=== PATIENT | female | born 1955 | race Caucasian/White ===

== ENCOUNTER 2016-10-29 16:08 | Emergency (ER) | payer SELFPAY ==
[~2016-10-29] VITALS: Ht 170.2 cm; Wt 63.1 kg
[~2016-10-29 16:08] MED LIST: NOHOMEMEDS
[2016-10-29] MEDS ORDERED: VENTOLIN HFA18 GM IH (18:38)
[2016-10-29 19:05] VITALS: BP 107/59
== END 2016-10-29 19:07 | disposition home or self-care (01) ==
LOC: EME 16:08
DX: J20.9 Acute bronchitis, unspecified (principal); F17.200 Nicotine dependence, unspecified, uncomplicated
CPT/HCPCS: 71020; 94640; 99281; 99284

== ENCOUNTER 2016-11-16 23:04 | Emergency (ER) | payer BC ==
[~2016-11-16] VITALS: Ht 170.2 cm; Wt 61.4 kg
[~2016-11-16 23:04] MED LIST changes: +VENTOLIN HFA18 GM IH
[2016-11-16 23:56] LABS: HEMATOCRIT 34.4 % (36.0-46.0); MCH 27.4 PG (29.0-34.0); MCHC 31.1 G/DL (30.0-36.0); MEAN PLAT.VOLUME 8.7 uM^3 (9.5-12.4); PLATELET COUNT 269 K/uL (156-360); RBC DIS.WIDTH-CV 15.7 % (11.8-14.6); RBC DIS.WIDTH-SD 49.1 % (39-53); RED BLOOD COUNT 3.91 M/uL (3.80-5.20); WHITE BLOOD COUNT 7.4 K/uL (4.1-10.2)
[2016-11-17 00:06] LABS: CHLORIDE 104 mEq/L (99-109); POTASSIUM 4.4 mEq/L (3.7-5.4); SODIUM 137 mEq/L (136-147)
[2016-11-17 00:07] LABS: GLUCOSE 92 mg/dL (70-99)
[2016-11-17 00:09] LABS: ANION GAP 7 MEQ/L (2-14)
[2016-11-17 00:11] LABS: GFR ESTIMATE (CALCULATED) > 59 mL/min/
[2016-11-17 00:12] LABS: UREA NITROGEN (BUN) 15 mg/dL (9-23)
[2016-11-17] MEDS ORDERED: ZANAFLEX2 MG PO (02:55)
[2016-11-17] MEDS ORDERED: MEDROL DOSEPAK4 MG PO (02:55)
[2016-11-17 03:46] VITALS: BP 120/76
== END 2016-11-17 04:06 | disposition home or self-care (01) ==
LOC: EME 23:04
DX: S29.012A Strain of muscle and tendon of back wall of thorax, initial encounter (principal); X58.XXXA Exposure to other specified factors, initial encounter; M54.6 Pain in thoracic spine; Z87.09 Personal history of other diseases of the respiratory system; F17.200 Nicotine dependence, unspecified, uncomplicated
CPT/HCPCS: 71020; 80048; 85027; 99281; 99284; J1170; J1885

== ENCOUNTER 2017-04-24 02:06 | Inpatient (IN) | payer OTHER ==
[~2017-04-24] VITALS: Ht 170.2 cm; Wt 61.1 kg
[~2017-04-24 02:06] MED LIST changes: +MEDROL DOSEPAK4 MG PO; +ZANAFLEX2 MG PO
[2017-04-24] MEDS ORDERED: PAXIL40 MG PO (02:40)
[2017-04-24] MEDS ORDERED: MOTRIN800 MG PO (02:40)
[2017-04-24 03:56] LABS: HEMATOCRIT 29.6 % (36.0-46.0); MCH 26.6 PG (29.0-34.0); MCHC 32.1 G/DL (30.0-36.0); MCV 82.9 FL (83-99); MEAN PLAT.VOLUME 8.5 uM^3 (9.5-12.4); PLATELET COUNT 245 K/uL (156-360); RBC DIS.WIDTH-CV 13.7 % (11.8-14.6); RBC DIS.WIDTH-SD 41.8 % (39-53); RED BLOOD COUNT 3.57 M/uL (3.80-5.20); WHITE BLOOD COUNT 6.3 K/uL (4.1-10.2)
[2017-04-24 04:06] LABS: CHLORIDE 102 mEq/L (99-109); SODIUM 134 mEq/L (136-147)
[2017-04-24 04:07] LABS: GLUCOSE 95 mg/dL (70-99)
[2017-04-24 04:09] LABS: ANION GAP 8 MEQ/L (2-14)
[2017-04-24 04:11] LABS: GFR ESTIMATE (CALCULATED) 22 mL/min/
[2017-04-24 04:12] LABS: UREA NITROGEN (BUN) 25 mg/dL (9-23)
[2017-04-24 04:17] LABS: TROP-I INTERPRETATION NEGATIVE; TROPONIN-I < 0.01 ng/mL (0.0-0.30)
[2017-04-24 07:38] LABS: TROP-I INTERPRETATION NEGATIVE; TROPONIN-I 0.01 ng/mL (0.0-0.30)
[2017-04-24] MEDS ORDERED: CYCLOBENZAPRINE10 MG PO (08:33)
[2017-04-24] MEDS ORDERED: MULTI-VITAMIN1 EAC3 PO (08:34)
[2017-04-24] MEDS ORDERED: ARTIFICIAL TEAR15 M1 BOTH EYES (08:34)
[2017-04-24 11:08] VITALS: BP 136/67
[2017-04-24 14:06] LABS: IRON 36 MCG/DL (35-150)
[2017-04-24 14:10] LABS: TROP-I INTERPRETATION NEGATIVE; TROPONIN-I < 0.01 ng/mL (0.0-0.30)
[2017-04-24 16:05] VITALS: BP 106/74
[2017-04-24 19:42] VITALS: BP 118/65
[2017-04-24 19:58] LABS: TROP-I INTERPRETATION NEGATIVE; TROPONIN-I 0.02 ng/mL (0.0-0.30)
[2017-04-24 23:32] VITALS: BP 124/65
[2017-04-25 00:36] LABS: ADD MIUA? YES; BILIRUBIN NEGATIVE; BLOOD SMALL; COLOR YELLOW ((YELLOW)); GLUCOSE (STRIP) NEGATIVE; KETONES NEGATIVE; LEUKOCYTES SMALL; NITRITE NEGATIVE; PROTEIN (STRIP) NEGATIVE; SPECIFIC GRAVITY 1.008 (1.000-1.030); UROBILINOGEN 0.2 MG/DL (0.2-1.0)
[2017-04-25 00:55] LABS: BACTERIA 2+ /HPF; EPITHELIAL CELLS RARE /HPF; MUCUS TRACE /LPF; RED BLOOD CELLS 0-5 /HPF (0-5); UCUL ADDED? YES
[2017-04-25 03:38] VITALS: BP 133/69
[2017-04-25 06:33] LABS: ANION GAP 3 MEQ/L (2-14); CHLORIDE 111 MEQ/L (99-109); GFR ESTIMATE (CALCULATED) 41 mL/min/; GLUCOSE 86 mg/dL (70-99); POTASSIUM 4.3 MEQ/L (3.7-5.4); SAMPLE HEMOLYSIS CHECK 0; SAMPLE ICTERIC CHECK 0; SAMPLE LIPEMIA CHECK 0; SODIUM 138 MEQ/L (136-147); UREA NITROGEN (BUN) 19 mg/dL (9-23)
[2017-04-25 07:30] VITALS: BP 149/71
[2017-04-25 11:25] VITALS: BP 130/63
[2017-04-25 15:32] VITALS: BP 140/66
[2017-04-25 19:27] VITALS: BP 144/65
[2017-04-26] VITALS (7 sets, daily range): BP systolic 119–150; BP diastolic 58–72
[2017-04-26 07:08] LABS: ANION GAP 7 MEQ/L (2-14); CHLORIDE 109 MEQ/L (99-109); GFR ESTIMATE (CALCULATED) > 59 mL/min/; GLUCOSE 91 mg/dL (70-99); POTASSIUM 3.8 MEQ/L (3.7-5.4); SAMPLE HEMOLYSIS CHECK 0; SAMPLE ICTERIC CHECK 0; SAMPLE LIPEMIA CHECK 0; SODIUM 139 MEQ/L (136-147); UREA NITROGEN (BUN) 12 mg/dL (9-23)
[2017-04-27 03:37] VITALS: BP 135/61
[2017-04-27 08:26] VITALS: BP 146/71
[2017-04-27 11:33] VITALS: BP 134/74
[2017-04-27 16:17] VITALS: BP 138/80
[2017-04-27 19:52] VITALS: BP 117/56
[2017-04-28 00:01] VITALS: BP 120/58
[2017-04-28 03:37] VITALS: BP 124/58
[2017-04-28 07:06] LABS: ALKALINE PHOSPHATASE 192 IU/L (3-129); ANION GAP 6 MEQ/L (2-14); CHLORIDE 104 MEQ/L (99-109); GFR ESTIMATE (CALCULATED) > 59 mL/min/; GLOBULINS 5.3 G/DL (2.3-3.5); GLUCOSE 87 mg/dL (70-99); POTASSIUM 3.8 MEQ/L (3.7-5.4); SAMPLE HEMOLYSIS CHECK 0; SAMPLE ICTERIC CHECK 0; SAMPLE LIPEMIA CHECK 0; SODIUM 139 MEQ/L (136-147); TOTAL BILIRUBIN 0.2 MG/DL (0.0-1.0); UREA NITROGEN (BUN) 9 mg/dL (9-23)
[2017-04-28 07:23] LABS: IMMUNOGLOBULIN A 28 MG/DL (40-350); IMMUNOGLOBULIN G 3671 MG/DL (650-1600); IMMUNOGLOBULIN M 34 MG/DL (50-300)
[2017-04-28 11:53] VITALS: BP 132/67
[2017-04-28 15:17] LABS: ALBUMIN 2.53 G/DL (3.6-4.9); ALBUMIN PERCENT 32.4 % (49.3-67.1); ALPHA-1 GLOBULIN 0.48 G/DL (0.15-0.40); ALPHA-1 PERCENT 6.2 % (2.1-5.5); ALPHA-2 PERCENT 14.1 % (6.2-11.6); BETA PERCENT 6.4 % (8.9-15.8); GAMMA PERCENT 40.9 % (8.6-18.6)
[2017-04-28 16:46] VITALS: BP 123/61
[2017-04-28 19:52] VITALS: BP 107/58
[2017-04-28 23:54] VITALS: BP 116/67
[2017-04-29 04:05] VITALS: BP 116/63
[2017-04-29 07:39] VITALS: BP 139/66
[2017-04-29 11:17] VITALS: BP 126/65
[2017-04-29 15:31] VITALS: BP 111/56
[2017-04-30] VITALS: BP 118/74
[2017-04-30 07:28] VITALS: BP 133/60
[2017-04-30 15:29] VITALS: BP 127/58
[2017-04-30 23:53] VITALS: BP 122/59
[2017-05-01 05:52] LABS: INTER. NORMALIZED RATIO 1.1; PROTHROMBIN TIME 12.4 SEC (10.2-12.9)
[2017-05-01 05:55] LABS: PTT 25.8 SEC (25-37)
[2017-05-01 07:24] VITALS: BP 153/71
[2017-05-01 12:53] LABS: MCH 27.2 PG (29.0-34.0); MCHC 31.5 G/DL (30.0-36.0); MCV 86.4 FL (83-99); MEAN PLAT.VOLUME 9.4 uM^3 (9.5-12.4); NRBC (%) 0.2 /100 WBC (0-0); PLATELET COUNT 303 K/uL (156-360); RBC DIS.WIDTH-CV 14.5 % (11.8-14.6); RBC DIS.WIDTH-SD 45.2 % (39-53); RED BLOOD COUNT 3.01 M/uL (3.80-5.20); WHITE BLOOD COUNT 8.6 K/uL (4.1-10.2)
[2017-05-01 13:14] LABS: ABS NEUTROPHIL COUNT 7.2; EOSINOPHIL ABS CT 0; INSTRUMENT ABS NEUTROPHIL CT 6.8 K/uL; PLAT.SUFFICIENCY ADEQUATE
[2017-05-01 15:20] VITALS: BP 128/70
[2017-05-02 00:05] VITALS: BP 90/50
[2017-05-02 06:06] LABS: HEMATOCRIT 28.7 % (36.0-46.0); MCH 27.4 PG (29.0-34.0); MCHC 31.4 G/DL (30.0-36.0); MCV 87.2 FL (83-99); MEAN PLAT.VOLUME 8.8 uM^3 (9.5-12.4); NRBC (%) 0.7 /100 WBC (0-0); PLATELET COUNT 337 K/uL (156-360); RBC DIS.WIDTH-CV 14.5 % (11.8-14.6); RBC DIS.WIDTH-SD 46.1 % (39-53); RED BLOOD COUNT 3.29 M/uL (3.80-5.20); WHITE BLOOD COUNT 6.9 K/uL (4.1-10.2)
[2017-05-02 06:44] LABS: ANION GAP 6 MEQ/L (2-14); CHLORIDE 102 MEQ/L (99-109); GFR ESTIMATE (CALCULATED) > 59 mL/min/; GLUCOSE 96 mg/dL (70-99); POTASSIUM 4.4 MEQ/L (3.7-5.4); SAMPLE HEMOLYSIS CHECK 0; SAMPLE ICTERIC CHECK 0; SAMPLE LIPEMIA CHECK 0; SODIUM 140 MEQ/L (136-147); UREA NITROGEN (BUN) 15 mg/dL (9-23)
[2017-05-02 07:22] VITALS: BP 110/57
[2017-05-02] MEDS ORDERED: NICOTINE PATCH1 EAC1 TD (15:07)
[2017-05-02] MEDS ORDERED: TIZANIDINE HCL2 MG PO (15:07)
[2017-05-02] MEDS ORDERED: SPIRIVA RESPIMAT4 GM IH (15:07)
[2017-05-02] MEDS ORDERED: VENTOLIN HFA18 GM IH (15:07)
[2017-05-02] MEDS ORDERED: ADVAIR HFA120 INHALA IH (15:09)
[2017-05-02] MEDS ORDERED: PROMETHAZINE HC25 M1 PO (15:09)
[2017-05-02] MEDS ORDERED: DOCUSATE SODIU100 MG PO (15:09)
[2017-05-02] MEDS ORDERED: ALPRAZOLAM0.25 M2 PO (15:13)
[2017-05-02] MEDS ORDERED: ENDOCET 5-3251 EACH PO (15:13)
[2017-05-02] MEDS ORDERED: PREDNISONE10 MG PO (15:13)
[2017-05-02] MEDS ORDERED: OXYCONTIN15 MG PO (15:13)
[2017-05-02 15:34] VITALS: BP 121/57
[2017-05-02] MEDS ORDERED: INCRUSE ELLI62.5 MCG IH (16:09)
[2017-05-02] MEDS ORDERED: DULERA 100 MCG/13 GM IH (16:09)
[2017-05-10 08:18] LABS: NUMBER OF MARKERS 24; SPECIMEN VIABILITY 99
== END 2017-05-02 17:13 | disposition home or self-care (01) | DRG 190 ==
LOC: EME 02:06 → 5SOUTH 07:47 → EDOF 07:47 → ENRESERV 08:02 → 5SOUTH 10:50
PROVIDERS: Anesthesiology; Family Medicine; Internal Medicine; Physician Assistant Medical; Radiology Diagnostic Radiology
PROC: 07DR3ZX Extraction of Iliac Bone Marrow, Percutaneous Approach, Diagnostic (ICD-10-PCS; principal; 2017-05-01)
DX: J44.0 Chronic obstructive pulmonary disease with (acute) lower respiratory infection (principal); J18.9 Pneumonia, unspecified organism; J44.1 Chronic obstructive pulmonary disease with (acute) exacerbation; N17.9 Acute kidney failure, unspecified; C79.89 Secondary malignant neoplasm of other specified sites; I26.99 Other pulmonary embolism without acute cor pulmonale; C79.51 Secondary malignant neoplasm of bone; C90.00 Multiple myeloma not having achieved remission; M48.54XA Collapsed vertebra, not elsewhere classified, thoracic region, initial encounter for fracture; F41.9 Anxiety disorder, unspecified; J20.9 Acute bronchitis, unspecified; M54.14 Radiculopathy, thoracic region; D50.9 Iron deficiency anemia, unspecified; F17.210 Nicotine dependence, cigarettes, uncomplicated; K59.00 Constipation, unspecified; K21.9 Gastro-esophageal reflux disease without esophagitis; M94.0 Chondrocostal junction syndrome [Tietze]; R79.1 Abnormal coagulation profile; X50.0XXA Overexertion from strenuous movement or load, initial encounter; Y93.F2 Activity, caregiving, lifting; Y99.0 Civilian activity done for income or pay; Z88.5 Allergy status to narcotic agent; Z83.3 Family history of diabetes mellitus; Z87.730 Personal history of (corrected) cleft lip and palate
CPT/HCPCS: 71010; 71020; 71250; 71260; 72157; 74177; 77012; 78582; 80048; 80053; 81003; 82232; 82607; 82746; 82784 90; 83540; 83615; 83883 90; 84165; 84466; 84484; 85007; 85027; 85379; 85610; 85730; 86334; 87040; 87086; 93005; 94640; 94640 76; 94799; 97530 GO; 99202; 99281; 99284; A9540; A9567; J0696; J1644; J1650; J1885; J2060; J2270; J3010; J7030; J7050; J7512

== ENCOUNTER 2017-06-10 16:39 | Emergency (ER) | payer OTHER ==
[~2017-06-10] VITALS: Ht 170.2 cm; Wt 56.8 kg
[~2017-06-10 16:39] MED LIST changes: +ADVAIR HFA120 INHALA IH; +ALPRAZOLAM0.25 M2 PO; +ARTIFICIAL TEAR15 M1 BOTH EYES; +CYCLOBENZAPRINE10 MG PO; +DOCUSATE SODIU100 MG PO; +DULERA 100 MCG/13 GM IH; +ENDOCET 5-3251 EACH PO; +INCRUSE ELLI62.5 MCG IH; +MOTRIN800 MG PO; +MULTI-VITAMIN1 EAC3 PO; +NICOTINE PATCH1 EAC1 TD; +OXYCONTIN15 MG PO; +PAXIL40 MG PO; +PREDNISONE10 MG PO; +PROMETHAZINE HC25 M1 PO; +SPIRIVA RESPIMAT4 GM IH; +TIZANIDINE HCL2 MG PO
[2017-06-10] MEDS ORDERED: LIDODERM 5% P1 PATCH TD (18:48)
[2017-06-10 19:55] VITALS: BP 124/70
== END 2017-06-10 19:56 | disposition home or self-care (01) ==
LOC: EME 16:39
DX: M48.54XA Collapsed vertebra, not elsewhere classified, thoracic region, initial encounter for fracture (principal); S29.011A Strain of muscle and tendon of front wall of thorax, initial encounter; X50.9XXA Other and unspecified overexertion or strenuous movements or postures, initial encounter; Y93.E1 Activity, personal bathing and showering; C90.00 Multiple myeloma not having achieved remission; F41.9 Anxiety disorder, unspecified; Z88.5 Allergy status to narcotic agent; F17.200 Nicotine dependence, unspecified, uncomplicated
CPT/HCPCS: 71100; 71120; 72070; 99281; 99284

== ENCOUNTER 2017-07-19 12:35 | Inpatient (IN) | payer OTHER ==
[~2017-07-19] VITALS: Ht 170.2 cm; Wt 53.7 kg
[~2017-07-19 12:35] MED LIST changes: +LIDODERM 5% P1 PATCH TD
[2017-07-19 13:22] LABS: HEMATOCRIT 38.5 % (36.0-46.0); HEMOGLOBIN 12.4 G/DL (11.9-15.5); MCH 27.4 PG (29.0-34.0); MCHC 32.2 G/DL (30.0-36.0); MCV 85.2 FL (83-99); PLATELET COUNT 422 K/uL (156-360); RBC DIS.WIDTH-CV 15.7 % (11.8-14.6); RBC DIS.WIDTH-SD 48.7 % (39-53); RED BLOOD COUNT 4.52 M/uL (3.80-5.20); WHITE BLOOD COUNT 9.9 K/uL (4.1-10.2)
[2017-07-19 13:34] LABS: CHLORIDE 104 mEq/L (99-109); POTASSIUM 3.9 mEq/L (3.7-5.4); SODIUM 136 mEq/L (136-147)
[2017-07-19 13:35] LABS: GLUCOSE 87 mg/dL (70-99)
[2017-07-19 13:39] LABS: CREATININE 0.7 mg/dL (0.6-1.3); GFR ESTIMATE (CALCULATED) > 59 mL/min/
[2017-07-19 13:40] LABS: UREA NITROGEN (BUN) 19 mg/dL (9-23)
[2017-07-19 13:43] LABS: TROP-I INTERPRETATION NEGATIVE; TROPONIN-I < 0.01 ng/mL (0.0-0.30)
[2017-07-19 20:10] VITALS: BP 121/65
[2017-07-19 23:30] VITALS: BP 112/62
[2017-07-20 04:22] VITALS: BP 107/56
[2017-07-20 06:56] LABS: HEMATOCRIT 35.1 % (36.0-46.0); HEMOGLOBIN 11.2 G/DL (11.9-15.5); MCH 27.8 PG (29.0-34.0); MCHC 31.9 G/DL (30.0-36.0); MCV 87.1 FL (83-99); PLATELET COUNT 348 K/uL (156-360); RBC DIS.WIDTH-CV 16.2 % (11.8-14.6); RBC DIS.WIDTH-SD 51.3 % (39-53); RED BLOOD COUNT 4.03 M/uL (3.80-5.20); WHITE BLOOD COUNT 8.7 K/uL (4.1-10.2)
[2017-07-20 07:35] LABS: CHLORIDE 105 MEQ/L (99-109); CREATININE 0.7 MG/DL (0.6-1.3); GFR ESTIMATE (CALCULATED) > 59 mL/min/; SODIUM 136 MEQ/L (136-147); UREA NITROGEN (BUN) 16 mg/dL (9-23)
[2017-07-20 07:39] LABS: GLUCOSE 141 mg/dL (70-99); POTASSIUM 4.7 MEQ/L (3.7-5.4)
[2017-07-20 07:51] VITALS: BP 118/60
[2017-07-20 11:12] VITALS: BP 104/55
[2017-07-20 15:50] VITALS: BP 122/56
[2017-07-21 00:03] VITALS: BP 114/59
[2017-07-21 07:16] LABS: APPEARANCE CLEAR ((CLEAR)); BILIRUBIN NEGATIVE; BLOOD SMALL; COLOR YELLOW ((YELLOW)); GLUCOSE (STRIP) 50; KETONES NEGATIVE; LEUKOCYTES TRACE; NITRITE NEGATIVE; PROTEIN (STRIP) NEGATIVE; SPECIFIC GRAVITY 1.011 (1.000-1.030); UROBILINOGEN 0.2 MG/DL (0.2-1.0)
[2017-07-21 07:30] LABS: BACTERIA NONE SEEN /HPF; EPITHELIAL CELLS NONE SEEN /HPF; MUCUS NONE SEEN /LPF; RED BLOOD CELLS 0-5 /HPF (0-5); UCUL ADDED? YES; URIC ACID CRYSTALS 1+ /HPF
[2017-07-21 07:59] VITALS: BP 104/54
[2017-07-21 15:29] VITALS: BP 98/52
[2017-07-22 00:07] VITALS: BP 111/56
[2017-07-22 08:04] VITALS: BP 115/92
[2017-07-22 11:15] VITALS: BP 104/65
[2017-07-22 13:01] LABS: BASOPHIL (%) 0.4 % (0-1); EOSINOPHIL (%) 1.6 % (0-5); EOSINOPHIL COUNT 0.1 K/uL (0-0.3); HEMATOCRIT 34.2 % (36.0-46.0); HEMOGLOBIN 10.7 G/DL (11.9-15.5); IMMATURE GRANULOCYTE (%) 1.8 % (0.0-0.7); LYMPHOCYTE (%) 10.2 % (15-42); LYMPHOCYTE COUNT 0.5 K/uL (1.0-2.8); MCH 26.9 PG (29.0-34.0); MCHC 31.3 G/DL (30.0-36.0); MCV 85.9 FL (83-99); MONOCYTE (%) 7.2 % (3-12); MONOCYTE COUNT 0.4 K/uL (0-0.8); NEUTROPHIL (%) 78.8 % (45-76); NRBC (%) 0.4 /100 WBC (0-0); PLATELET COUNT 268 K/uL (156-360); RBC DIS.WIDTH-CV 15.9 % (11.8-14.6); RBC DIS.WIDTH-SD 49.7 % (39-53); RED BLOOD COUNT 3.98 M/uL (3.80-5.20); WHITE BLOOD COUNT 5.1 K/uL (4.1-10.2)
[2017-07-22 13:25] LABS: CHLORIDE 99 MEQ/L (99-109); CREATININE 0.7 MG/DL (0.6-1.3); GFR ESTIMATE (CALCULATED) > 59 mL/min/; SODIUM 132 MEQ/L (136-147); UREA NITROGEN (BUN) 12 mg/dL (9-23)
[2017-07-22 13:32] LABS: GLUCOSE 94 mg/dL (70-99)
[2017-07-22 14:07] LABS: ALBUMIN 2.7 G/DL (3.2-4.8)
[2017-07-22 16:19] VITALS: BP 105/50
[2017-07-22 23:22] VITALS: BP 91/52
[2017-07-23 07:33] VITALS: BP 115/53
[2017-07-23 08:00] LABS: HEMATOCRIT 30.8 % (36.0-46.0); HEMOGLOBIN 9.4 G/DL (11.9-15.5); MCH 26.9 PG (29.0-34.0); MCHC 30.5 G/DL (30.0-36.0); PLATELET COUNT 266 K/uL (156-360); RBC DIS.WIDTH-CV 16.3 % (11.8-14.6); RBC DIS.WIDTH-SD 52.4 % (39-53); WHITE BLOOD COUNT 5.4 K/uL (4.1-10.2)
[2017-07-23 08:24] LABS: ALBUMIN 2.5 G/DL (3.2-4.8); ALKALINE PHOSPHATASE 365 IU/L (3-129); ALT (GPT) 130 IU/L (3-49); AST (GOT) 139 IU/L (2-34); CHLORIDE 108 MEQ/L (99-109); CREATININE 0.6 MG/DL (0.6-1.3); GFR ESTIMATE (CALCULATED) > 59 mL/min/; GLUCOSE 174 mg/dL (70-99); MAGNESIUM 2.1 mg/dl (1.3-2.7); POTASSIUM 3.9 MEQ/L (3.7-5.4); SODIUM 137 MEQ/L (136-147); TOTAL BILIRUBIN 0.3 MG/DL (0.0-1.0); TOTAL PROTEIN 5.1 G/DL (6.4-8.3); UREA NITROGEN (BUN) 9 mg/dL (9-23)
[2017-07-23 12:31] LABS: HEPATITIS B SURFACE ANTIGEN Nonreactive; HEPATITIS C ANTIBODY Nonreactive
[2017-07-23 12:32] LABS: ANTI-HEPATITIS A VIRUS (IGM) Nonreactive
[2017-07-23 12:33] LABS: ANTI-HEPATITIS B CORE (IGM) Nonreactive
[2017-07-23 15:54] VITALS: BP 95/65
[2017-07-23 23:59] VITALS: BP 110/60
[2017-07-24 04:13] LABS: BASOPHIL (%) 0.1 % (0-1); EOSINOPHIL (%) 0.9 % (0-5); EOSINOPHIL COUNT 0.1 K/uL (0-0.3); HEMATOCRIT 29.2 % (36.0-46.0); HEMOGLOBIN 9.2 G/DL (11.9-15.5); IMMATURE GRANULOCYTE (%) 1.3 % (0.0-0.7); LYMPHOCYTE (%) 6.8 % (15-42); LYMPHOCYTE COUNT 0.6 K/uL (1.0-2.8); MCH 27.4 PG (29.0-34.0); MCHC 31.5 G/DL (30.0-36.0); MCV 86.9 FL (83-99); MONOCYTE (%) 9.7 % (3-12); MONOCYTE COUNT 0.8 K/uL (0-0.8); NEUTROPHIL (%) 81.2 % (45-76); NEUTROPHIL COUNT 6.7 K/uL (1.8-6.4); PLATELET COUNT 269 K/uL (156-360); RBC DIS.WIDTH-CV 16.4 % (11.8-14.6); RBC DIS.WIDTH-SD 51.9 % (39-53); RED BLOOD COUNT 3.36 M/uL (3.80-5.20); WHITE BLOOD COUNT 8.2 K/uL (4.1-10.2)
[2017-07-24 04:24] LABS: ALBUMIN 2.4 g/dL (3.2-4.8)
[2017-07-24 04:25] LABS: CHLORIDE 110 mEq/L (99-109); POTASSIUM 3.8 mEq/L (3.7-5.4); SODIUM 139 mEq/L (136-147)
[2017-07-24 04:27] LABS: GLUCOSE 125 mg/dL (70-99); TOTAL PROTEIN 4.6 g/dL (6.4-8.3)
[2017-07-24 04:29] LABS: TOTAL BILIRUBIN 0.3 mg/dL (0.0-1.0)
[2017-07-24 04:30] LABS: ALKALINE PHOSPHATASE 341 IU/L (3-129)
[2017-07-24 04:31] LABS: CREATININE 0.6 mg/dL (0.6-1.3); GFR ESTIMATE (CALCULATED) > 59 mL/min/
[2017-07-24 04:32] LABS: AST (GOT) 46 IU/L (2-34); DIRECT BILIRUBIN 0.1 mg/dL (0.0-0.3); UREA NITROGEN (BUN) 10 mg/dL (9-23)
[2017-07-24 04:34] LABS: ALT (GPT) 104 IU/L (3-49)
[2017-07-24 07:58] VITALS: BP 112/54
[2017-07-24 09:33] LABS: MAGNESIUM 2.5 mg/dl (1.3-2.7)
[2017-07-24 15:58] VITALS: BP 112/56
[2017-07-24 23:16] VITALS: BP 107/56
[2017-07-25 07:47] LABS: HEMATOCRIT 33.2 % (36.0-46.0); HEMOGLOBIN 10.5 G/DL (11.9-15.5); MCH 28.2 PG (29.0-34.0); MCHC 31.6 G/DL (30.0-36.0); MCV 89.2 FL (83-99); NRBC (%) 0.3 /100 WBC (0-0); PLATELET COUNT 274 K/uL (156-360); RBC DIS.WIDTH-CV 17.1 % (11.8-14.6); RBC DIS.WIDTH-SD 55.7 % (39-53); RED BLOOD COUNT 3.72 M/uL (3.80-5.20); WHITE BLOOD COUNT 6.4 K/uL (4.1-10.2)
[2017-07-25 08:09] VITALS: BP 130/73
[2017-07-25 11:12] LABS: INTACT PARATHYROID HORMONE 191 pg/mL (10-69)
[2017-07-25 11:14] LABS: ALBUMIN 2.6 G/DL (3.2-4.8); ALKALINE PHOSPHATASE 328 IU/L (3-129); ALT (GPT) 64 IU/L (3-49); AST (GOT) 16 IU/L (2-34); CHLORIDE 108 MEQ/L (99-109); CREATININE 0.6 MG/DL (0.6-1.3); GFR ESTIMATE (CALCULATED) > 59 mL/min/; GLUCOSE 89 mg/dL (70-99); PHOSPHORUS 1.7 mg/dL (2.5-4.9); POTASSIUM 4.7 MEQ/L (3.7-5.4); SODIUM 139 MEQ/L (136-147); TOTAL BILIRUBIN 0.2 MG/DL (0.0-1.0); TOTAL PROTEIN 5.1 G/DL (6.4-8.3); UREA NITROGEN (BUN) 11 mg/dL (9-23)
[2017-07-25 15:18] VITALS: BP 131/60
[2017-07-25 19:38] VITALS: BP 116/58
[2017-07-26 00:34] VITALS: BP 111/57
[2017-07-26 04:09] VITALS: BP 109/61
[2017-07-26 05:35] LABS: BASOPHIL (%) 0.2 % (0-1); EOSINOPHIL (%) 0.2 % (0-5); HEMATOCRIT 34.2 % (36.0-46.0); HEMOGLOBIN 10.7 G/DL (11.9-15.5); IMMATURE GRANULOCYTE (%) 2.3 % (0.0-0.7); LYMPHOCYTE (%) 7.9 % (15-42); LYMPHOCYTE COUNT 0.5 K/uL (1.0-2.8); MCH 27.3 PG (29.0-34.0); MCHC 31.3 G/DL (30.0-36.0); MCV 87.2 FL (83-99); MONOCYTE (%) 2.5 % (3-12); MONOCYTE COUNT 0.2 K/uL (0-0.8); NEUTROPHIL (%) 86.9 % (45-76); NEUTROPHIL COUNT 5.3 K/uL (1.8-6.4); PLATELET COUNT 265 K/uL (156-360); RBC DIS.WIDTH-CV 17.1 % (11.8-14.6); RBC DIS.WIDTH-SD 54.2 % (39-53); RED BLOOD COUNT 3.92 M/uL (3.80-5.20); WHITE BLOOD COUNT 6.1 K/uL (4.1-10.2)
[2017-07-26 07:58] VITALS: BP 128/78
[2017-07-26 09:19] LABS: ALKALINE PHOSPHATASE 320 IU/L (3-129); ALT (GPT) 62 IU/L (3-49); AST (GOT) 18 IU/L (2-34); CHLORIDE 105 MEQ/L (99-109); CREATININE 0.5 MG/DL (0.6-1.3); GFR ESTIMATE (CALCULATED) > 59 mL/min/; GLUCOSE 120 mg/dL (70-99); SODIUM 137 MEQ/L (136-147); TOTAL BILIRUBIN 0.3 MG/DL (0.0-1.0); TOTAL PROTEIN 5.1 G/DL (6.4-8.3); UREA NITROGEN (BUN) 12 mg/dL (9-23)
[2017-07-26 16:06] VITALS: BP 115/56
[2017-07-26 23:16] VITALS: BP 119/58
[2017-07-27 05:50] LABS: BASOPHIL (%) 0.2 % (0-1); EOSINOPHIL (%) 0.2 % (0-5); HEMATOCRIT 34.7 % (36.0-46.0); HEMOGLOBIN 10.6 G/DL (11.9-15.5); IMMATURE GRANULOCYTE (%) 3.4 % (0.0-0.7); LYMPHOCYTE (%) 12.8 % (15-42); LYMPHOCYTE COUNT 0.8 K/uL (1.0-2.8); MCH 26.6 PG (29.0-34.0); MCHC 30.5 G/DL (30.0-36.0); MONOCYTE (%) 10.2 % (3-12); MONOCYTE COUNT 0.6 K/uL (0-0.8); NEUTROPHIL (%) 73.2 % (45-76); NEUTROPHIL COUNT 4.3 K/uL (1.8-6.4); NRBC (%) 0.9 /100 WBC (0-0); PLATELET COUNT 261 K/uL (156-360); RBC DIS.WIDTH-CV 17.2 % (11.8-14.6); RBC DIS.WIDTH-SD 54.5 % (39-53); RED BLOOD COUNT 3.99 M/uL (3.80-5.20); WHITE BLOOD COUNT 5.9 K/uL (4.1-10.2)
[2017-07-27 06:29] LABS: ALBUMIN 2.8 G/DL (3.2-4.8); ALKALINE PHOSPHATASE 351 IU/L (3-129); ALT (GPT) 71 IU/L (3-49); AST (GOT) 34 IU/L (2-34); CHLORIDE 107 MEQ/L (99-109); CREATININE 0.6 MG/DL (0.6-1.3); GFR ESTIMATE (CALCULATED) > 59 mL/min/; GLUCOSE 96 mg/dL (70-99); MAGNESIUM 2.2 mg/dl (1.3-2.7); PHOSPHORUS 2.1 mg/dL (2.5-4.9); POTASSIUM 4.1 MEQ/L (3.7-5.4); SODIUM 140 MEQ/L (136-147); TOTAL BILIRUBIN 0.2 MG/DL (0.0-1.0); UREA NITROGEN (BUN) 16 mg/dL (9-23)
[2017-07-27 08:13] VITALS: BP 140/73
[2017-07-27 17:14] VITALS: BP 120/57
[2017-07-27 23:13] VITALS: BP 114/58
[2017-07-28 08:07] VITALS: BP 143/64
[2017-07-28 11:36] VITALS: BP 138/72
[2017-07-28] MEDS ORDERED: OYSTER SHELL 51 EACH PO (12:11)
[2017-07-28] MEDS ORDERED: ACYCLOVIR200 MG PO (12:14)
[2017-07-28] MEDS ORDERED: BACTRIM,SEPT1 TABLET PO (12:14)
[2017-07-28] MEDS ORDERED: PREDNISONE10 MG PO (12:15)
[2017-07-28 15:35] VITALS: BP 133/65
== END 2017-07-28 16:29 | disposition home or self-care (01) | DRG 872 ==
LOC: EME 12:35 → EDOF 18:59 → 3EAST 18:59 → CANRESERV 19:00 → ENRESERV 19:00 → 3EAST 19:41
PROVIDERS: Hospitalist; Physician Assistant
DX: A41.9 Sepsis, unspecified organism (principal); J44.1 Chronic obstructive pulmonary disease with (acute) exacerbation; C90.00 Multiple myeloma not having achieved remission; G89.3 Neoplasm related pain (acute) (chronic); F17.210 Nicotine dependence, cigarettes, uncomplicated; E83.51 Hypocalcemia; M84.58XA Pathological fracture in neoplastic disease, other specified site, initial encounter for fracture; J98.11 Atelectasis; R91.1 Solitary pulmonary nodule
CPT/HCPCS: 71010; 71020; 71275; 72129; 74176; 76705; 77336; 77402; 77417; 80048; 80053; 80074; 80076; 80202; 81003; 82040; 82306; 82330; 83605; 83735; 83970; 84100; 84484; 85025; 85027; 87040; 87086; 93005; 94640; 94640 76; 94799; 97530 GO; 99202; 99281; 99285; G0378; G8978 GP CI; G8980 GP CH; G8987 GO CI; G8988 GO CH; J0610; J0692; J1100; J1650; J2270; J2920; J3370; J3489; J7030; J7050; J7120; J7512; J9041